=== PATIENT | female | born 1960 | race Caucasian/White ===

== ENCOUNTER 2023-08-07 00:22 | Emergency (ER) | payer MEDICARE, OTHER, SELFPAY ==
[2023-08-07 00:26] VITALS: BP 121/60; BMI 24.5
[2023-08-07 00:59] LABS: ALT (SGPT) 58 U/L (0-35); AST (SGOT) 106 U/L (14-36); Albumin 4.6 g/dl (3.5-5.0); Alkaline Phosphatase 115 U/L (38-126); Blood Urea Nitrogen 22 mg/dl (7-17); Calcium 9.6 mg/dl (8.4-10.2); Carbon Dioxide 27 mmol/L (22-30); Chloride 106 mmol/L (98-107); Estimated Creatinine Clearance 66 ml/min; Glucose 124 mg/dl (70-99); Lipase 112 U/L (23-300); Potassium 3.6 mmol/L (3.5-5.1); Sodium 140 mmol/L (135-145); Total Bilirubin 0.4 mg/dl (0.2-1.3); Total Protein 7.4 g/dl (6.3-8.2); eGFR > 60.00
[2023-08-07 01:00] VITALS: BP 103/56
[2023-08-07 01:01] LABS: % Basophils 0.8 % (0-2); % Eosinophils 0.8 % (0-6); % Immature Granulocytes 0.5 % (0-0.5); % Lymphocytes 16.7 % (20.5-51.1); % Monocytes 6.6 % (1.7-9.3); % Neutrophils 74.6 % (42.2-75.2); Absolute Basophils 0.1 10^3/uL (0-0.2); Absolute Eosinophils 0.1 10^3/uL (0-0.7); Absolute Immature Granulocytes 0.1 10^3/uL (0-0.05); Absolute Lymphocytes 2.1 10^3/uL (1.2-3.4); Absolute Monocytes 0.8 10^3/uL (0.1-0.6); Absolute Neutrophils 9.5 10^3/uL (1.4-6.5); Hematocrit 41.8 % (37.0-47.0); Hemoglobin 14.1 g/dL (12.0-16.0); Mean Corp Hgb Conc. 33.7 g/dL (33.0-37.0); Mean Corpuscular Hgb 29.3 pg (27.0-31.0); Mean Corpuscular Volume 86.9 fL (81.0-99.0); Mean Platelet Volume 10.4 fL (7.4-10.4); Nucleated Red Blood Cells % 0 %; Platelet Count 296 10^3/uL (130-400); Red Blood Cell Count 4.81 10^6/uL (4.20-5.40); Red Cell Dist. Width 13.6 % (11.5-14.5); White Blood Cell Count 12.7 10^3/uL (4.8-10.8)
[2023-08-07 01:05] LABS: Troponin I < 0.012 ng/ml
--- NOTE | 2023-08-07 01:20 | ED.GENMED ---
History of Present Illness
<TIAGO Howe - Last Filed: 08/07/23 01:35>
General
Chief Complaint: Chest Pain
Source: patient
Exam Limitations: none
Time Seen by Provider: 08/07/23 01:01
Nursing documentation reviewed up to this point in time: agreed with
Travel History
Have you had any contact with someone who has COVID-19?: No
Do you have any symptoms of coronavirus? Fever > 100 degrees, chills, cough, shortness of breath, sore throat, loss of taste or smell, muscle aches, or headache?: No
History of Present Illness
History of Present Illness:
patient is a 63 y/o female presenting [facility] chest pain since 6 pm. Patient states the pain came on after eating dinner. Patient admits to eating a spicy burrito for dinner. Patient admits that the pain started in her upper abdomen and radiated up her
sternum. Patient describes that the pain is colicky and 'squeezing'. Patient admits she has never had this pain before. Patient admits to nausea, sweating, and heartburn with the pain. Patient denies dizziness, V/D/C, edema, calf pain, changes to
urination. Patient admits that she recently was started on Mobic one week ago for a torn rotator cuff. Patient denies taking the Mobic tonight. patient has a history of a cholecystectomy in 2020.
Past History
<TIAGO Howe - Last Filed: 08/07/23 01:35>
Past History
ED Past Medical History: Asthma, Hypercholesterolemia, Hypothyroidism, Psychiatric (depression/anxiety/PTSD) and Other (migraines)
ED Past Surgical History: Appendectomy and Cholecystectomy
Social History
Tobacco: Former smoker
Alcohol: None
Personal:
Living: alone
Review of Systems
<TIAGO Howe - Last Filed: 08/07/23 01:35>
Review of Systems
EENT: Reports other (dry mouth)
Cardiac: Reports chest pain, diaphoresis and palpitations
ABD/GI: Reports abdominal pain and nausea
: Reports no symptoms
Musculoskeletal: Reports no symptoms
Skin: Reports no symptoms
Neurological: Reports no symptoms
Endocrine: Reports no symptoms
Hematologic/Lymphatic: Reports no symptoms
Psychiatric: Reports no symptoms
Phy Exam
<TIAGO Howe - Last Filed: 08/07/23 01:35>
General Physical Exam
General Presentation: well appearing and no apparent distress
General Skin: warm and dry
General Habitus: normal
General Mental: alert
General Hydration: appears well hydrated
ENT Exam
ENT Exam: EOMI, pharynx normal, neck supple and normocephalic
Eye Exam
Eye Exam: PERRL, cornea clear and conjunctiva normal
Cardiovascular Exam
Cardiovascular Exam: regular rate/rhythm, no edema, no murmur and normal peripheral pulses
Pulmonary Exam
Pulmonary Exam: lungs clear, no respiratory distress, no rales, no crackles, no rhonchi, no stridor, no wheezing and no cough
Gastrointestinal Exam
Gastrointestinal Exam: normal bowel sounds, non tender, soft, no organomegaly, no pulsatile mass and non distended
Neurological Exam
Neurological Exam: alert, oriented x3, no motor deficits and speech normal
Musculoskeletal Exam
Musculoskeletal Exam: full ROM and no edema
Skin Exam
Skin Exam: normal color, warm/dry, no rash and no petechia
Psychiatric Exam
Psychiatric Exam: normal mood/affect
<Sangeeta Bustos DO - Last Filed: 08/07/23 03:15>
Heart Score for Chest Pain Patients
STEMI patient?: No
History: Slightly or Non-Suspicious
ECG: Normal
Age: >/= 65 years
Risk Factors: No Risk Factors
Troponin: </= Normal Limit
Heart Score for Chest Pain Patients: 2
Heart Score Risk: 2.5% MACE over next 6 weeks
Course
[employer]ac[employer];TIAGO Howe - Last Filed: 08/07/23 01:35>
Orders/Labs/Results
Orders:
Orders
08/07/23 00:23
EKG [Electrocardiogram (*1)] Urgent
Reason for Study: Chest Pain
08/07/23 00:24
EKG- Treatment ONCE
08/07/23 00:32
Complete Blood Count/With Diff Urgent
Comprehensive Metabolic Panel Urgent
Lipase Urgent
Comment: ADD ON
Troponin I Urgent
08/07/23 00:36
Add On- LAB Urgent
Tests Added?: lipase
08/07/23 01:32
Pantoprazole [Protonix IV] 40 mg IV NOW STA
08/07/23 01:33
US Abdomen Complete/Upper Urgent
Comment:
Reason For Exam: acute epigastric pain, elevated LFT's;chole12/21
Abnormal Lab Results
08/07/23
00:32
WBC 12.7 H 10^3/uL
(4.8-10.8)
Abs Immat Gran (auto) 0.1 H 10^3/uL
(0-0.05)
Absolute Neuts (auto) 9.5 H 10^3/uL
(1.4-6.5)
Absolute Monos (auto) 0.8 H 10^3/uL
(0.1-0.6)
Lymphocytes % 16.7 L %
(20.5-51.1)
BUN 22 H mg/dl
(7-17)
Glucose 124 H mg/dl
(70-99)
AST 106 H U/L
(14-36)
ALT 58 H U/L
(0-35)
08/07/23 00:32
08/07/23 00:32
Vital Signs
Initial and Last Documented VS:
Initial Vital Signs
Temp Pulse Resp BP Pulse Ox
98.6 F 66 17 121/60 97
08/07/23 00:26 08/07/23 00:26 08/07/23 00:26 08/07/23 00:26 08/07/23 00:26
Last Documented Vital Signs
Temp Pulse Resp BP Pulse Ox
98.6 F 66 13 103/56 98
08/07/23 00:26 08/07/23 01:45 08/07/23 01:45 08/07/23 01:00 08/07/23 01:45
<Sangeeta Bustos, DO - Last Filed: 08/07/23 03:15>
Orders/Labs/Results
Orders:
Orders
08/07/23 00:23
EKG [Electrocardiogram (*1)] Urgent
Reason for Study: Chest Pain
08/07/23 00:24
EKG- Treatment ONCE
08/07/23 00:32
Complete Blood Count/With Diff Urgent
Comprehensive Metabolic Panel Urgent
Lipase Urgent
Comment: ADD ON
Troponin I Urgent
08/07/23 00:36
Add On- LAB Urgent
Tests Added?: lipase
08/07/23 01:32
Pantoprazole [Protonix IV] 40 mg IV NOW STA
08/07/23 01:33
US Abdomen Complete/Upper Urgent
Comment:
Reason For Exam: acute epigastric pain, elevated LFT's;chole12/21
Abnormal Lab Results
08/07/23
00:32
WBC 12.7 H 10^3/uL
(4.8-10.8)
Abs Immat Gran (auto) 0.1 H 10^3/uL
(0-0.05)
Absolute Neuts (auto) 9.5 H 10^3/uL
(1.4-6.5)
Absolute Monos (auto) 0.8 H 10^3/uL
(0.1-0.6)
Lymphocytes % 16.7 L %
(20.5-51.1)
BUN 22 H mg/dl
(7-17)
Glucose 124 H mg/dl
(70-99)
AST 106 H U/L
(14-36)
ALT 58 H U/L
(0-35)
08/07/23 00:32
08/07/23 00:32
Vital Signs
Initial and Last Documented VS:
Initial Vital Signs
Temp Pulse Resp BP Pulse Ox
98.6 F 66 17 121/60 97
08/07/23 00:26 08/07/23 00:26 08/07/23 00:26 08/07/23 00:26 08/07/23 00:26
Last Documented Vital Signs
Temp Pulse Resp BP Pulse Ox
98.6 F 66 13 103/56 98
08/07/23 00:26 08/07/23 01:45 08/07/23 01:45 08/07/23 01:00 08/07/23 01:45
<TIAGO Howe - Last Filed: 08/07/23 01:35>
MDM/Problems Addressed
Differential Diagnosis Includes:
choledocholithiasis
GERD
PUD
MDM/Problems Addressed:
chest/abdominal pain
<TIAGO Howe - Last Filed: 08/07/23 01:35>
*Critical Care Note
Total Time (30-74mins, 75-104mins- exclusive of procedures): Not Applicable
<Sangeeta Bustos DO - Last Filed: 08/07/23 03:15>
*Radiology
Radiology exam reviewed: radiology read reviewed (Abdominal ultrasound is unremarkable. No biliary ductal dilatation. Absent gallbladder.)
*Pulse Oximetry
Patient hypoxic: no
*EKG
Interpreted by ED Provider?: Yes
Interpretation: normal
Comparison EKG: no changes (Unchanged from previous April 2021 taper heart rate has decreased from 67 to now 56)
Rate: bradycardiac
Rhythm: sinus
[place]: normal axis
Interval: normal interval
QRS Pattern: normal QRS
Ischemia: no ischemia
*Sustainability Consultant Interpretation
Rate: normal
Interpretation: normal
Rhythm: sinus
ED Attending Note
<TIAGO Howe - Last Filed: 08/07/23 01:35>
-
Portions of this chart may have been created with voice recognition software.� Occasional wrong word or��sound alike� substitutions may have occurred due to the inherent limitations of voice recognition software.
<Sangeeta Bustos DO - Last Filed: 08/07/23 03:15>
ED Attending Note
Patient seen and examined by attending physician: Yes
I performed the substantive portion of visit, reviewed & personally made and approve the management plan that is documented in note by myself or MONA.: Yes
I performed a history and physical exam of patient and discussed management with resident, I reviewed resident's note and agree with documented findings and plan of care.: Yes
ED Attending Note:
This is a 63-year-old woman who has history of GERD, hypothyroidism, migraine headaches and prior history of cholecystectomy April 2021.
More recently has been suffering with right rotator cuff tear, following with orthopedics and underwent local steroid injection and was started on Mobic earlier this month, July 19.
Tonight, around 6 PM, shortly after consuming a spicy burrito she developed epigastric abdominal discomfort that radiates to her lower substernal chest, moderate and persistent with waves of increased pain accompanied with intermittent nausea,
intermittent brief diaphoresis. Pain persisted for at least 4 hours but since arrival to the ED has resolved. Pain felt similar to gallbladder attack pain prior to cholecystectomy.
She arrives via EMS and was given 4 chewable aspirin prehospital.
She did not trial any home remedies.
GENERAL: 63-year-old woman appears her stated age, bright and alert, pleasant, appears in no acute distress.
EYE: anicteric
NECK: Supple, nontender, no meningismus, no significant adenopathy.
ENT: oral mucosa is moist. No rhinorrhea.
CARDIAC: Regular rate and rhythm. no murmur.
LUNGS: Clear breath sounds bilaterally, no acute respiratory distress, no wheezes/rales/rhonchi
ABDOMEN: Soft, nondistended, without focal tenderness, no r/g, no cvat. normoactive BS.
NEUROLOGICAL: Alert and oriented x3, no focal neuro deficits.
SKIN: Warm and dry, normal color, skin intact. No rash.
MUSCULOSKELETAL: No C/C/E. peripheral pulses are full and equal b/l. No palpable tenderness.
PSYCH: Normal and appropriate interaction.
Concern for acute gastritis/GERD, pancreatitis, common bile duct stone, ACS.
Prehospital EKG as well as EKG upon arrival both unremarkable showing sinus bradycardia, no acute ST-T wave abnormalities.
No history of CAD nor significant risk factors for CAD.
There is some concern for GERD/gastritis which may be aggravated by recent initiation of Mobic.
Other consideration is biliary colic/common bile duct stone thus will check abdominal ultrasound.
Labs show mildly elevated white blood cell count at 12.7.
Chemistries show very minimally elevated LFTs but normal alkaline phosphatase, normal T. bili. Similarly elevated AST and ALT noted just after cholecystectomy May 2021. At this point unclear if LFTs normalized and have now acutely region
versus chronically mild elevation.
Troponin is negative. With ongoing pain for more than 4 hours, negative troponin, unremarkable EKG, ACS is unlikely.
Will give a dose of Protonix now.
Will check abdominal ultrasound.
08/07/2023 0308 AM
Abdominal ultrasound is unremarkable.
Patient remains pain-free and comfortable.
As she has had no further right shoulder pain after steroid injection by orthopedics recommend she discontinue Mobic at least temporarily as I have concern for gastritis/GERD.
Recommend she avoid spicy, fried foods and will add a short course of daily Protonix.
Prompt follow-up with PCP for recheck.
Return precautions discussed.
Discharge Plan
Departure
Patient Disposition: Home (Routine Discharge)
Date of Disposition: 08/07/23
Time of Disposition: 03:13
Patient with high blood pressure during this ER visit?: No
Discharge Problem:
acute gastritis with GERD, Elevated liver enzymes
Instructions: Acid Reflux and GERD in Adults (DC), Chest Pain PCP Follow Up
Prescriptions:
New
pantoprazole [Protonix] 40 mg tablet,delayed release (DR/EC)
40 mg PO DAILY Qty: 30 0RF
No Action
levothyroxine 112 MCG tablet
112 mcg PO DAILY
pantoprazole 40 MG tablet,delayed release (DR/EC)
40 mg PO DAILY Qty: 10 0RF
cyclobenzaprine 10 MG tablet
10 mg PO PRN PRN (Reason: muscle spasms)
sumatriptan succinate [Imitrex] 100 MG tablet
100 mg PO PRN PRN (Reason: migraines)
estradiol [Yuvafem] 10 MCG tablet
10 mcg VG .2TIMESA WEEK
clindamycin HCl 150 MG capsule
150 mg PO
acetaminophen 325 MG tablet
650 mg PO Q4HPRN PRN (Reason: mild pain) Qty: 1 0RF
ibuprofen 200 MG tablet
400 - 600 mg PO Q6HPRN PRN (Reason: moderate pain) Qty: 1 0RF
ketorolac 10 MG tablet
10 mg PO Q6HPRN PRN (Reason: pain) Qty: 20 0RF
dicyclomine 10 MG capsule
10 mg PO QID PRN (Reason: abdominal pain) Qty: 20 0RF
acetaminophen-codeine 1 TABLET tablet
1 tab PO Q4HPRN PRN (Reason: breakthrough/severe pain) Qty: 10 0RF
Referrals:
Sonu Woods MD [Family Provider] - Call in 1-3 days for appt
Interventions
Interventions:
*Risk Screen - Suicide Last Done: 08/07/23 00:29
*General Assessment Last Done: 08/07/23 00:28
*Neglect/Abuse Screening Last Done: 08/07/23 00:29
ED- Fall Risk Assessment Last Done: 08/07/23 00:29
*ED COVID-19 Vaccine History Last Done: 08/07/23 00:28
ZC-Bdczau-Ulrctdxirr Assessment Last Done: 08/07/23 00:29
ED- Cardiac Assessment Last Done: 08/07/23 00:29
[2023-08-07] MEDS: PROTONIX IV 40 MG IV (02:29)
[2023-08-07 02:33] VITALS: BP 113/67
[2023-08-07 03:00] VITALS: BP 131/70
== END 2023-08-07 03:40 | disposition home or self-care (01) ==
LOC: EMR 00:22
PROVIDERS: EMERGENCY PHYSICIAN Emergency Medicine; FAMILY PHYSICIAN Family Medicine
DX: K29.00 Acute gastritis without bleeding (principal); R61 Generalized hyperhidrosis; R00.2 Palpitations; R74.8 Abnormal levels of other serum enzymes; E78.00 Pure hypercholesterolemia, unspecified; E03.9 Hypothyroidism, unspecified; J45.909 Unspecified asthma, uncomplicated; F32.A Depression, unspecified; F41.9 Anxiety disorder, unspecified; F43.10 Post-traumatic stress disorder, unspecified; G43.909 Migraine, unspecified, not intractable, without status migrainosus; Z87.891 Personal history of nicotine dependence; Z90.49 Acquired absence of other specified parts of digestive tract; Z88.5 Allergy status to narcotic agent; Z88.0 Allergy status to penicillin
CPT/HCPCS: 99284; 96374; 76700; 80053; 83690; 84484; 85025; 93005